=== PATIENT | female | born 1945 | race Caucasian/White ===

== ENCOUNTER 2017-05-26 11:16 | Emergency (ER) | payer OTHER ==
[~2017-05-26] VITALS: Ht 147.3 cm; Wt 97.5 kg
--- NOTE | 2017-05-26 11:32 | ED CARDIAC/CP/PALPITATIONS ---
History of Present Illness General Chief Complaint: Chest Pain Stated Complaint: CHEST PAIN Source: patient, EMS Exam Limitations: no limitations Vital Signs & Intake/Output Vital Signs & Intake/Output ED Intake and Output 05/27 0000 05/26 1200 Intake Total Output Total Balance Patient 215 lb Weight Weight Reported by Patient Measurement Method Allergies Coded Allergies: codeine (Severe, SOB 05/26/17) Reconcile Medications No Known Home Medications Triage Note: BIBA FROM HOME, S/C LEFT SHOULDER PAIN RADIAITNG TO CHEST X 2 DAYS, REPORTS NAUSEA AND DIARRHEA 4 DAYS AGO. Triage Nurses Notes Reviewed? yes Onset: Abrupt Duration: day(s): (2) Timing: recent history Quality/Severity: moderate, severe, pressure Location: central Radiation: jaw, neck, shoulders Activities at Onset: rest Modifying Factors: Worsens With: movement. Aspirin Today: 81 mg x 4 Associated Symptoms: shortness of breath, nausea/vomiting HPI: This is a 71 year old female of arthritis on occasional Advil who presents by EMS from home for chief complaint of chest pain in her center of her chest that started yesterday. She describes it as a squeezing twisting sensation. It radiates to her jaw, her left shoulder and arm. Symptoms have been persistent since yesterday. Reports some nausea, diaphoresis, worsening shortness of breath with exertion. She was given 4 baby aspirin and a nitroglycerin on route to the hospital. The nitroglycerin initially did not help her. No history of similar symptoms in the past. She has been complaining of back and scapular pain on and off for the last 2 weeks. She saw her doctor and they started her on a muscle relaxant but she states the muscle relaxant did not help. She is a former smoker quit approximately 4 years ago. Pertinent family history for coronary disease in her father. He of a AL at 43 but it experienced multiple MIs prior to that. Past History Travel History Traveled to [place] past 21 day No Medical History Any Pertinent Medical History? see below for history Musculoskeletal: arthritis History of MRSA: No History of VRE: No History of CDIFF: No Surgical History Surgical History: non-contributory Psychosocial History Who do you live with Patient/Self Services at Home None What is your primary language Divehi Tobacco Use: Quit >30 days ago ETOH Use: occasional use Illicit Drug Use: denies illicit drug use Family History Family History, If Any: FATHER ( of AL at age 43). MOTHER ( at age 89 of Septic Shock that they said was either due to pneumonia or Flu). SISTER (COPD). Hx Contributory? Yes Review of Systems Review of Systems Constitutional: Denies: chills, fever. EENTM: Reports: no symptoms. Respiratory: Reports: short of breath. Cardiovascular: Reports: chest pain. Denies: palpitations, peripheral edema. GI: Reports: no symptoms. Genitourinary: Reports: no symptoms. Musculoskeletal: Reports: back pain. Skin: Reports: no symptoms. Neurological/Psychological: Reports: no symptoms. Hematologic/Endocrine: Denies: bruising, bleeding, polyuria, polydipsia. Immunologic/Allergic: Denies: splenectomy. All Other Systems: Reviewed and Negative Physical Exam Physical Exam General Appearance: well developed/nourished, alert, awake, anxious, mild distress, moderate distress, obese Head: atraumatic, normal appearance Eyes: Bilateral: normal appearance, PERRL, EOMI. Ears, Nose, Throat: normal pharynx, normal ENT inspection, hearing grossly normal Neck: normal inspection, supple, full range of motion Respiratory: normal breath sounds, no respiratory distress Cardiovascular: murmur (MARY CARMEN) Peripheral Pulses: 2+ radial (R), 2+ radial (L) Gastrointestinal: normal bowel sounds, soft, non-tender, OBESE Extremities: normal inspection, normal capillary refill, normal range of motion, pedal edema (TRACE BILATERAL) Skin: intact, normal color, warm/dry Core Measures ACS in differential dx? Yes CVA/TIA Diagnosis No Sepsis Present: No Sepsis Focused Exam Completed? No Progress Differential Diagnosis: AMI, aortic dissection, myocarditis, pancreatitis, unstable angina, VALVE RUPTURE, AORTIC STENOSIS, MITRAL REGURGITATION Plan of Care: Orders Procedure Date/time Status XRY-PORTABLE CHEST XRAY 05/26 1148 Active TROPONIN LEVEL 05/26 1146 Complete PARTIAL THROMBOPLASTIN TIME 05/26 1146 Complete PROTHROMBIN TIME 05/26 1146 Complete MAGNESIUM 05/26 1146 Complete LIPID PANEL 05/26 1146 Complete COMPREHENSIVE METABOLIC PANEL 05/26 1146 Complete CBC WITHOUT DIFFERENTIAL 05/26 1146 Complete EKG 05/26 1118 Active Laboratory Tests 05/26/17 1147: Anion Gap 11, Estimated GFR > 60, BUN/Creatinine Ratio 25.7 H, Glucose 118 H, Calcium 9.0, Magnesium 2.0, Total Bilirubin 0.7, AST 36, ALT 38, Alkaline Phosphatase 136 H, Troponin I 7.68 *H, Total Protein 7.3, Albumin 3.9, Globulin 3.4, Albumin/Globulin Ratio 1.1, Triglycerides 68, Cholesterol 164, LDL Cholesterol, Calc 99, HDL Cholesterol 52, Cholesterol/HDL Ratio 3, PT 12.0, INR 1.14, APTT 26, CBC w Diff NO MAN DIFF REQ, RBC 4.58, MCV 87.5, MCH 28.8, MCHC 32.9 L, RDW 14.9 H, MPV 9.0, Gran % 82.2 H, Lymphocytes % 9.0 L, Monocytes % 8.3, Eosinophils % 0.2, Basophils % 0.3, Absolute Granulocytes 10.6 H, Absolute Lymphocytes 1.2, Absolute Monocytes 1.1 H, Absolute Eosinophils 0, Absolute Basophils 0 PATIENT with ongoing chest pain since yesterday. ST elevation in the inferior leads as well as developing Q waves. Dr. White consult and will evaluate patient in the ER. 12:09 PM PATIENT SEEN BY DR WHITE, TRANSFERRED TO [facility]. D/W DR SIDDIQI. Initial ED EKG: ST ELEVATION 2, 3, AVF WITH Q WAVES 3, AVF T WAVE INVERSION 3 AVF Departure Departure Time of Disposition: 1209 Disposition: OTHER GENERAL HOSPITAL (ACUTE) Condition: Stable Clinical Impression Primary Impression: AMI (acute mesenteric ischemia) Referrals: Trina Blunt MD (PCP/Family) Departure Forms: Customer Survey General Discharge Information Prescriptions: Current Visit Scripts No Known Home Medications Critical Care Note Critical Care Note Critical Care Time: 30-74 min
[2017-05-26 11:53] VITALS: BP 124/61
[2017-05-26 12:07] LABS: ABSOLUTE BASOPHIL COUNT 0 /CUMM (0.0-0.2); ABSOLUTE EOSINOPHIL COUNT 0 /CUMM (0.0-0.7); ABSOLUTE GRANULOCYTE CT 10.6 /CUMM (1.4-6.5); ABSOLUTE LYMPH COUNT 1.2 /CUMM (1.2-3.4); ABSOLUTE MONOCYTE COUNT 1.1 /CUMM (0.10-0.60); BASOPHIL % 0.3 % (0.0-2.0); EOSINOPHIL % 0.2 % (0-5); GRANULOCYTE % 82.2 % (42.2-75.2); HEMATOCRIT 40.1 % (37-47); MEAN CORPUSCULAR HGB 28.8 PG (27.0-31.0); MEAN CORPUSCULAR HGB CONC 32.9 G/DL (33.0-37.0); MEAN CORPUSCULAR VOLUME 87.5 FL (81.0-99.0); PLATELET COUNT 339 /CUMM (130-400); RBC DISTRIBUTION WIDTH 14.9 % (11.5-14.5); RED BLOOD CELL CT 4.58 /CUMM (4.20-5.40); WHITE BLOOD CELL COUNT 12.9 /CUMM (4.8-10.8)
[2017-05-26 12:18] LABS: PTT 26 SEC (25-37)
--- NOTE | 2017-05-26 12:59 | RADIOLOGY REPORT ---
EXAMINATION: XR PORTABLE CHEST CLINICAL INFORMATION: Chest pain and back pain COMPARISON: 05/04/2013 TECHNIQUE: Portable frontal view of the chest was obtained. FINDINGS: Cardiac lead overlies the chest. Lung volumes are low. Opacity at the left base is nonspecific and could be artifactual secondary to overlying prominent soft tissues. Small pleural effusion is possible. No dense consolidation. No pulmonary edema or pneumothorax. The cardiomediastinal silhouette is unremarkable for this technique. Degenerative changes at the shoulders. IMPRESSION: Left basilar opacity could be secondary to overlying soft tissues, although a small pleural effusion may be present. Unremarkable appearance of the cardiomediastinal silhouette on this portable AP study. PA radiographs are more appropriate for mediastinal evaluation.
--- NOTE | 2017-05-26 13:15 | Cons- Cardiology ---
General Information and HPI Consulting Request Date of Consult: 05/26/17 Requested By: Dr. Yepez Reason for Consult: Subacute inferior myocardial infarction Source of Information: patient Exam Limitations: no limitations History of Present Illness: The patient is a very nice 70-year-old female who denies any known cardiac history and has a strong family history of cardiac disease. The patient was brought to the emergency room by ambulance from home with the chief complaint of central chest discomfort radiating to her jaw. The patient notes that the discomfort began yesterday and has been waxing and waning since that time but has been persistent. On arrival at the emergency room she rated the symptoms as 10/10 in severity. She has also noted intermittent nausea, diaphoresis, and exertional shortness of breath since the onset of the symptoms yesterday. In the ambulance she was given nitroglycerin and 4 baby aspirin with minimal relief of the symptoms. In the emergency room a second nitroglycerin did decrease the symptoms from 10/10 in severity to 6/10 in severity. She denies any history of similar symptoms but has been having recent issues with back discomfort. Her risk factors include a strong family history including a father who of a myocardial infarction a 43 and the fact that the patient has a history of tobacco use, stopped 4 years ago. In the emergency room, the patient continues to have symptoms despite medication. Her ECG shows an evolving inferior myocardial infarction with Q waves in leads [address] elevation with terminal T-wave inversions in leads [address] elevation in lead 2. She also has slightly peaked T waves in V1 and V2. Allergies/Medications Allergies: Coded Allergies: codeine (Severe, SOB 05/26/17) Home Med List: No Known Home Medications Current Medications: Current Medications Sig/Patrice Start time Last Medication Dose Route Stop Time Status Admin Heparin Sodium 5,000 UNIT ONCE ONE 05/26 1200 DC 05/26 (Porcine) IV 05/26 1201 1203 Heparin Sodium 0 .STK-MED ONE 05/26 1155 DC (Porcine) .ROUTE Morphine Sulfate 2 MG ONCE ONE 05/26 1215 DC 05/26 IV 05/26 1216 1210 Morphine Sulfate 0 .STK-MED ONE 05/26 1210 DC .ROUTE Nitroglycerin 0.4 MG ONCE ONE 05/26 1200 DC 05/26 SL 05/26 1201 1148 Nitroglycerin 0 .STK-MED ONE 05/26 1151 DC SL Ticagrelor 180 MG ONCE ONE 05/26 1200 DC 05/26 PO 05/26 1201 1203 Ticagrelor 0 .STK-MED ONE 05/26 1156 DC PO Past History Travel History Traveled to [place] past 21 day No Medical History Musculoskeletal: arthritis Surgical History Surgical History: non-contributory Family History Relations & Conditions If Any: FATHER ( of IA at age 43). MOTHER ( at age 89 of Septic Shock that they said was either due to pneumonia or Flu). SISTER (COPD). Psychosocial History Services at Home: None ETOH Use: occasional use Illicit Drug Use: denies illicit drug use Exam & Diagnostic Data Vital Signs and I&O Vital Signs Date Time Temp Pulse Resp B/P B/P Pulse O2 O2 Flow FiO2 Mean Ox Delivery Rate 05/26 1158 94 Nasal 2.0L Cannula 05/26 1153 101 124/61 05/26 1145 101 18 144/71 98 Nasal 2.0L Cannula 05/26 1131 98.9 78 18 116/79 99 Room Air Intake & Output 05/26 1600 05/26 0800 05/26 0000 05/25 1600 05/25 0800 05/25 0000 Intake Total Output Total Balance Patient 215 lb Weight Weight Reported by Patient Measurement Method Physical Exam: General Appearance: well developed/nourished, alert, awake, anxious, mild to moderate distress, obese Head: atraumatic, normal appearance Eyes: Normal Ears, Nose, Throat: Normal Neck: normal inspection, supple, full range of motion, JVP normal, carotid shows normal bilaterally Respiratory: Clear bilaterally Cardiovascular: Regular S1, S2. 2/6 systolic murmur mitral area Peripheral Pulses: 2+ radial (R), 2+ radial (L) Gastrointestinal: normal bowel sounds, soft, non-tender, OBESE Extremities: normal inspection, normal capillary refill, normal range of motion, pedal edema (TRACE BILATERAL) Skin: Normal Labs/Constantino Results: Laboratory Tests 05/26 1147 Chemistry Sodium (137 - 145 mmol/L) 140 Potassium (3.5 - 5.1 mmol/L) 4.1 Chloride (98 - 107 mmol/L) 100 Carbon Dioxide (22 - 30 mmol/L) 28 Anion Gap (5 - 16) 11 BUN (7 - 17 mg/dL) 18 H Creatinine (0.5 - 1.0 mg/dL) 0.7 Estimated GFR (>60 ml/min) > 60 BUN/Creatinine Ratio (7 - 25 %) 25.7 H Glucose (65 - 99 mg/dL) 118 H Calcium (8.4 - 10.2 mg/dL) 9.0 Magnesium (1.6 - 2.3 mg/dL) 2.0 Total Bilirubin (0.2 - 1.3 mg/dL) 0.7 AST (14 - 36 U/L) 36 ALT (9 - 52 U/L) 38 Alkaline Phosphatase (<127 U/L) 136 H Troponin I (< 0.11 ng/ml) 7.68 *H Total Protein (6.3 - 8.2 g/dL) 7.3 Albumin (3.5 - 5.0 g/dL) 3.9 Globulin (1.9 - 4.2 gm/dL) 3.4 Albumin/Globulin Ratio (1.1 - 2.2 %) 1.1 Triglycerides (<150 mg/dL) 68 Cholesterol (<200 MG/DL) 164 LDL Cholesterol, Calc (65 - 129 mg/dL) 99 HDL Cholesterol (40 - 60 mg/dL) 52 Cholesterol/HDL Ratio (0.00 - 4.23 %) 3 Coagulation PT (9.4 - 12.5 SEC) 12.0 INR (0.90 - 1.19) 1.14 APTT (25 - 37 SEC) 26 Hematology CBC w Diff NO MAN DIFF REQ WBC (4.8 - 10.8 /CUMM) 12.9 H RBC (4.20 - 5.40 /CUMM) 4.58 Hgb (12.0 - 16.0 G/DL) 13.2 Hct (37 - 47 %) 40.1 MCV (81.0 - 99.0 FL) 87.5 MCH (27.0 - 31.0 PG) 28.8 MCHC (33.0 - 37.0 G/DL) 32.9 L RDW (11.5 - 14.5 %) 14.9 H Plt Count (130 - 400 /CUMM) 339 MPV (7.4 - 10.4 FL) 9.0 Gran % (42.2 - 75.2 %) 82.2 H Lymphocytes % (20.5 - 51.1 %) 9.0 L Monocytes % (1.7 - 9.3 %) 8.3 Eosinophils % (0 - 5 %) 0.2 Basophils % (0.0 - 2.0 %) 0.3 Absolute Granulocytes (1.4 - 6.5 /CUMM) 10.6 H Absolute Lymphocytes (1.2 - 3.4 /CUMM) 1.2 Absolute Monocytes (0.10 - 0.60 /CUMM) 1.1 H Absolute Eosinophils (0.0 - 0.7 /CUMM) 0 Absolute Basophils (0.0 - 0.2 /CUMM) 0 Diagnostic Data EKG Results Normal sinus rhythm, evolving inferior myocardial infarction with subtle peaked T waves in leads V1 and V2 Assessment/Plan Assessment/Plan Assessment: 1. Evolving inferior myocardial infarction with persistent significant chest discomfort and jaw discomfort 2. Strong family history of coronary artery disease 3. Obesity 4. History of arthritis with recent back pain of unclear etiology. Recommendations: -I had an extended discussion with the patient about current issues. Her symptoms are consistent with myocardial ischemia and her ECG shows an evolving inferior myocardial infarction. In view of the fact that she has having persistent symptoms, I feel the patient would be best served from intervention at the cardiac [facility] in spite of the fact that the symptoms were present for more than 24 hours. After an extended discussion, the patient agrees to proceed. -Aspirin, Proventil, metoprolol, and heparin given -Transfer to [facility] with Dr. Nguyen arranged.-I discussed the potential following up at our office post cardiac catheterization and the patient wishes to follow-up post procedure. We will arrange this at the appropriate time. Consult Acknowledgment - Thank you for your consult request.
== END 2017-05-26 12:21 | disposition short-term general hospital (02) ==
LOC: ERH 11:16
PROVIDERS: Emergency Medicine
DX: K55.059 Acute (reversible) ischemia of intestine, part and extent unspecified (principal); R07.89 Other chest pain
CPT/HCPCS: 71045; 93005; 93010; 96374; 99281; J1644; J3490